=== PATIENT | male | born 1950 | race Caucasian/White ===

== ENCOUNTER 2025-05-19 13:49 | Outpatient (CLI) | payer MEDICARE, OTHER, SELFPAY ==
--- NOTE | 2025-05-19 15:15 | US_ITS ---
WS: [id number] THYROID ULTRASOUND REASON FOR EXAM: see below TECHNIQUE: Grayscale and Doppler ultrasound examination of the thyroid gland. FINDINGS: RIGHT: Right thyroid gland measures 2.6 cm x 0.9 cm x 1.3 cm. Right thyroid volume equals 1.4 ccm3. Heterogeneous echotexture with no focal lesion. LEFT: Left thyroid gland measures 1.9 cm x 1.0 cm x 0.9 cm. Left thyroid volume equals 0.9 ccm3. Heterogeneous echotexture with no focal lesion. US/US thyroid [id number] IMPRESSION: Small volume thyroid with heterogeneous echotexture. No focal lesion.
== END 2025-05-19 13:50 | disposition home or self-care (01) ==
LOC: RAD 13:51
PROVIDERS: Visit Provider Internal Medicine
DX: I48.91 Unspecified atrial fibrillation (principal); E05.90 Thyrotoxicosis, unspecified without thyrotoxic crisis or storm; E07.89 Other specified disorders of thyroid
CPT/HCPCS: 76536; 83516; 84439; 84443; 84480; 86376; 86800; 99204

== ENCOUNTER 2025-07-20 13:15 | Outpatient (CLI) | payer MEDICARE, OTHER, SELFPAY ==
[2025-07-20 14:11] LABS: Thyroid Stimulating Hormone 32.10 uIU/mL (0.27-4.20)
[2025-07-20 14:40] LABS: Free T4 Free Thyroxine 0.28 ng/dL (0.82-1.77)
== END 2025-07-20 13:16 | disposition home or self-care (01) ==
LOC: LAB 13:18
PROVIDERS: Visit Provider Internal Medicine
DX: E05.90 Thyrotoxicosis, unspecified without thyrotoxic crisis or storm (principal); I48.91 Unspecified atrial fibrillation
CPT/HCPCS: 36415; 84439; 84443; 84480

== ENCOUNTER → 2025-07-21 08:22 | Outpatient (BNVA) | payer MEDICARE, OTHER, SELFPAY | PROVIDERS: Visit Provider Internal Medicine | DX: E05.90 Thyrotoxicosis, unspecified without thyrotoxic crisis or storm (principal); I48.91 Unspecified atrial fibrillation | CPT/HCPCS: 99214 ==

== ENCOUNTER 2025-08-31 12:32 | Outpatient (CLI) | payer MEDICARE, OTHER, SELFPAY ==
[2025-08-31 14:10] LABS: Free T4 Free Thyroxine 1.24 ng/dL (0.82-1.77); Thyroid Stimulating Hormone 1.40 uIU/mL (0.27-4.20)
== END 2025-08-31 12:33 | disposition home or self-care (01) ==
LOC: LAB 12:34
PROVIDERS: PCP Internal Medicine; Visit Provider Internal Medicine
DX: E05.90 Thyrotoxicosis, unspecified without thyrotoxic crisis or storm (principal)
CPT/HCPCS: 36415; 84439; 84443

== ENCOUNTER → 2025-09-01 10:12 | Outpatient (BNVA) | payer MEDICARE, OTHER, SELFPAY | PROVIDERS: PCP Internal Medicine; Visit Provider Internal Medicine Endocrinology, Diabetes & Metabolism | DX: E05.90 Thyrotoxicosis, unspecified without thyrotoxic crisis or storm (principal) | CPT/HCPCS: 99214 ==